=== PATIENT | male | born 1965 ===

== ENCOUNTER 2024-10-11 08:34 | Emergency (ER) | payer OTHER, SELFPAY ==
[2024-10-11] VITALS (7 sets, daily range): BP systolic 133–172; BP diastolic 66–84; PULSE 51–60; RESP 14–16; TEMP 36–36.6; O2SAT 97–99; BMI 49.4
--- NOTE | 2024-10-11 | ECG_ITS ---
Test Reason : cp Blood Pressure : */* mmHG Vent. Rate : 53 BPM Atrial Rate : 53 BPM P-R Int : 164 ms QRS Dur : 74 ms QT Int : 408 ms P-R-T Axes : 57 20 11 degrees QTcB Int : 382 ms Sinus bradycardia Otherwise normal ECG No previous ECGs available Referred By: Generic ED Physician Electronically Signed By: JORDI SCHULZ
--- NOTE | ~2024-10-11 | XR_ITS ---
EXAMINATION: XR CHEST CLINICAL INFORMATION: lightheaded/dizzy COMPARISON: None available. TECHNIQUE: Frontal view of the chest was obtained. FINDINGS: The cardiac, hilar, and mediastinal contours are normal. The lungs are clear bilaterally. No pneumothorax or effusion. No focal osseous or soft tissue abnormality. XR/XR chest 1V IMPRESSION: No active pulmonary disease. Electronically signed by: Yvon Mora MD 10/11/2024 10:33 AM EDT
--- NOTE | ~2024-10-11 | CT_ITS ---
EXAMINATION: CT HEAD WITHOUT IV CONTRAST HISTORY: RIGGS, blurred vision, L arm/face numbness. TECHNIQUE: Unenhanced helical CT of the head was performed per standard departmental protocol. Coronal and sagittal reformats of the head were also evaluated. One or more of the following techniques was used for dose reduction: Automated exposure control, adjustment of the mA and/or kV according to patient size, use of iterative reconstruction technique. DLP: 880 mGy-cm COMPARISON: There are no prior studies available for comparison. FINDINGS: BRAIN: The brain parenchyma is unremarkable. There is normal grimaldo/white differentiation. The ventricular system is normal in size and configuration. There is no mass effect or midline shift. No intra- or extra-axial fluid collections are identified. SINUSES: There is mucosal thickening in the bilateral ethmoid and right sphenoid sinuses. The mastoid air cells and middle ear cavities are well pneumatized. ORBITS: The visualized orbits are unremarkable. BONES/SOFT TISSUES: The extracranial soft tissues are unremarkable. The calvarium is intact. No suspicious lytic or sclerotic lesions. CT/CT head/brain wo IV con IMPRESSION: Unremarkable unenhanced head CT. Electronically signed by: Javier Payan MD 10/11/2024 10:39 AM EDT
--- NOTE | 2024-10-11 09:05 | PC.NURSE ---
Patient A&O x 3. Patient presents to ED c/o left chest pain which radiates to jaw and left arm. Pain rated 8/10. Patient c/o dizziness and lightheadedness denies falls. Patient hypertensive 153/76 all other VSS. Pain started two days ago, no precipitating factors. Patient on provider contracting consultant sinus gay. Call terry in reach. Plan of care on going.
[2024-10-11 09:33] LABS: MANUAL DIFF FLAG NO
[2024-10-11 09:35] LABS: Basophils Percent Auto 0.6 % (0-2); Eosinophils Absolute Auto 0.2 X10*3/uL (0.0-0.4); Eosinophils Percent Auto 2.6 % (0-4); Hematocrit 41.2 % (42.0-52.0); Imm Gran Abs Auto 0.01 X10*3/uL (0.00-0.03); Imm Gran Pct Auto 0.2 % (0.0-0.4); Lymphocytes Absolute Auto 3.5 X10*3/uL (1.2-4.9); Lymphocytes Percent Auto 54.1 % (20-40); Mean Corpuscular Hemoglobin 31.9 pg (27.0-33.0); Mean Corpuscular Volume 93.8 fL (80.0-98.0); Mean Platelet Volume 9.4 fL (9.4-12.4); Monocytes Absolute Auto 0.7 X10*3/uL (0.1-1.2); Monocytes Percent Auto 11.4 % (2-11); Neutrophils Percent Auto 31.1 % (45-73); Platelet Count 250 X10*3/uL (160-400); Red Blood Count 4.39 X10*6/uL (4.60-5.80); Red Cell Distribution Width 12.4 % (11.0-16.0); White Blood Count 6.5 X10*3/uL (4.8-10.8)
--- NOTE | 2024-10-11 09:41 | ED.CHESTPAIN ---
HPI - Chest Pain General Chief Complaint: Chest Pain Stated Complaint: quest of stroke Time Seen by Provider: 10/11/24 09:14 Source: patient, RN notes reviewed and old records reviewed Mode of arrival: ambulatory History of Present Illness ED Provider: Jennifer Lewis PA-C HPI narrative: 59-year-old male with a past medical history of asthma presenting to the ED complaining of headache, blurry vision, left-sided facial / jaw numbness, LUE numbness and left upper chest pain since waking this morning. Also reports associated slurred / slowed speech. Admits vision and speech has improved at present however remaining symptoms are still present. Admits to similar episode yesterday around noon, symptoms resolved and then recurred again today. Denies SOB, vision, nausea/ vomiting, SOB, abdominal pain. Denies anticoagulation use Related Data Home Medications ?Medication ?Instructions ?Recorded ?Confirmed colchicine 0.6 mg tablet 0.6 mg PO DAILY PRN gout 10/11/24 10/11/24 Allergies Allergy/AdvReac Type Severity Reaction Status Date / Time SHELL FISH Allergy Mild DIFFICULTY Uncoded 10/11/24 08:41 BREATHING Review of Systems Review of Systems: Yes all other systems are reviewed and are negative Constitutional: Constitutional: Reports as per HPI Neurologic: Denies Abnormal speech present [facility] Past Medical History Attestation statement: The following information was validated with the patient. Source: old records reviewed Social History Social History Smoked in Last 30 Days: No Use of substances other than those prescribed or required for medical reasons: No Advance Directives: No Advance Directives Information Provided: Yes Physical Exam Vital Signs: Vital Signs: Last Vital Signs Temp 96.8 F 10/11/24 11:57 Pulse 51 10/11/24 11:57 Resp 14 10/11/24 11:57 BP 156/84 H 10/11/24 11:57 Pulse Ox 99 10/11/24 11:57 O2 Del Method Room Air 10/11/24 11:57 BMI result Body Mass Index 49.4 Const: General: cooperative, healthy appearing and no acute distress Orientation/consciousness: patient oriented x3 Limitations: no limitations HEENT: Head: Yes normal to inspection and Yes atraumatic Ears: hearing grossly normal bilaterally General nose exam: Normal external nose present Face and sinus: Yes normal facial exam Eyes: General: appearance normal, both eyes and all related structures Pupils: Equal, round and reactive pupils present EOM: EOMs intact bilaterally Neck: Neck: Yes normal visual inspection and Yes no meningeal signs Resp: Effort & Inspection: normal respiratory effort and no respiratory distress Auscultation: clear to auscultation bilaterally, no crackles, no rales, no rhonchi and no wheezes Cardio: Rate: regular rate Heart sounds: S1 normal heart sound present and S2 normal heart sound present GI: Inspection: Yes normal to inspection Palpation (GI): Soft to palpation, nontender, no guarding and not rigid : General: Yes no CVA tenderness Back/Spine/Pelvis: Back: no CVA tenderness Skin: Rashes: no rashes Wounds: no wounds Neuro: General: patient oriented x3, tone normal, moves all extremities, no meningeal signs, no focal motor deficits and CN's II-XI intact bilaterally Cranial nerves: Yes CN's II-XII intact bilaterally and Yes Equal, round and reactive pupils present Cognition (Neuro): normal cognition Speech: No Abnormal speech present Gait exam (Neuro): Normal gait present Motor exam (neuro): 5/5 motor strength present throughout, Pronator motor function not present and no tremor noted Coordination: [id number] test normal Romberg Test: Negative Extrem: General: Yes normal to inspection NIH Stroke Scale Internal: Initial- Upon Arrival Level of Consciousness: Alert Level of Consciousness Questions: Answers both questions correctly Level of Consciousness Commands: Performs both tasks correctly Best Gaze: Normal Visual: No visual loss Facial Palsy: Normal Motor Arm (Right): No drift Motor Arm (Left): No drift Motor Leg (Right): No drift Motor Leg (Left): No drift Limb Ataxia: Absent Sensory: Normal Best Language: No aphasia Dysarthia: Normal Extinction and Inattention: No abnormality Score: 0 Course Course Course Narrative: - Labs reassuring - head CT and chest x-ray unremarkable > plan to admit for TIA. Patient accepted by hospitalist 1250 >1330--- patient now wants to sign out AMA. States he called his PCP and is scheduled for outpatient MRI. Discussed with patient at length risks of leaving, TIA/ CVA precautions/risks and importance of timely intervention. document control coordinator Slime also spoke with patient. He is A&O x3, competent to make his own decisions and will still sign out AMA Medical Decision Making Medical Decision Making MDM Narrative: 59-year-old male with a past medical history of asthma presenting to the ED complaining of headache, blurry vision, left-sided facial / jaw numbness, LUE numbness and left upper chest pain since waking this morning. Also reports associated slurred / slowed speech. On exam vital signs stable, NAD, nontoxic appearing, no focal deficits appreciated, NIHSS = 0. Concern for subacute CVA vs TIA vs atypical ACS vs complicated migraine. lower suspicion for SAH, dissection, PE, CVT Plan: EKG, labs, UA, CXR, head CT, anticipated admission Please refer to course for remaining clinical decision making, interpretation of labs/imaging results, and discussions with consultants and/or family members. Differential Diagnosis Differential Diagnoses: The differential diagnosis associated with the presentation includes As above Admission/Observation Consideration of admission/observation: Escalation of care including admission/observation considered Consult Healthcare Provider Management of the patient was discussed with: Hospitalist Lab Data [facility] Lab Attestation statement: I reviewed the patient's lab results. 10/11/24 09:30 10/11/24 09:30 Labs: Lab Results 10/11/24 10/11/24 Range/Units 09:30 10:02 WBC 6.5 (4.8-10.8) X10*3/uL RBC 4.39 L (4.60-5.80) X10*6/uL Hgb 14.0 (14.0-18.0) g/dl Hct 41.2 L (42.0-52.0) % MCV 93.8 (80.0-98.0) fL MCH 31.9 (27.0-33.0) pg MCHC 34.0 (31.0-36.0) g/dl RDW 12.4 (11.0-16.0) % Plt Count 250 (160-400) X10*3/uL MPV 9.4 (9.4-12.4) fL Immature Gran % (Auto) 0.2 (0.0-0.4) % Neut % (Auto) 31.1 L (45-73) % Lymph % (Auto) 54.1 H (20-40) % Cross % (Auto) 11.4 H (2-11) % Eos % (Auto) 2.6 (0-4) % Baso % (Auto) 0.6 (0-2) % Lymph # (Auto) 3.5 (1.2-4.9) X10*3/uL Cross # (Auto) 0.7 (0.1-1.2) X10*3/uL Eos # (Auto) 0.2 (0.0-0.4) X10*3/uL Baso # (Auto) 0.0 (0.0-0.2) X10*3/uL Abs Immat Gran (auto) 0.01 (0.00-0.03) X10*3/uL Absolute Neuts (auto) 2.0 (2.0-8.3) x10*3/uL Absolute Nucleated RBC 0.000 (0.0-0.012) X10*3/uL Nucleated RBC % (auto) 0.0 (0.0-0.2) /100WBC PT 11.4 (10.9-12.4) SEC INR 1.0 (0.9-1.1) Sodium 142 (135-145) mmol/L Potassium 3.9 (3.3-5.1) mmol/L Chloride 109 H (96-108) mmol/L Carbon Dioxide 27 (22-29) mmol/L Anion Gap 10 L (12-20) BUN 12 (9-16) mg/dL Creatinine 0.92 (0.5-1.4) mg/dL Estim Creat Clear Calc 121.4 Estimated GFR > 60 Random Glucose 106 (60-115) mg/dL Calcium 9.0 (8.4-10.2) mg/dL Magnesium 2.1 (1.6-2.6) mg/dL Total Bilirubin 0.6 (0.0-1.0) mg/dL AST 22 (5-37) U/L ALT 30 (0-40) U/L Alkaline Phosphatase 48 (39-117) U/L Troponin I High Sens < 2.7 (<3.5-35.0) ng/L Total Protein 6.9 (6.5-8.0) g/dL Albumin 4.2 (3.5-5.0) g/dL Influenza Type A (PCR) NEGATIVE (Negative) Influenza Type B (PCR) NEGATIVE (Negative) RSV RNA Qual (PCR) NEGATIVE (Negative) SARS-CoV-2 RNA (RT-PCR) NEGATIVE (Negative) Independent Interpretation I performed an independent interpretation of an: EKG, Plain X-Ray and CT Scan Radiology Impression Discussion of test interpretation with radiology: I have reviewed the radiologist's reading. Independent Historian Clinical information obtained from an independent historian. History obtained from or confirmed by: Other External Record Review External record reviewed: Inpatient record, Office record, Outpatient record, Prior outpatient labs, Prior outpatient radiology, Primary care record and Outside ED record Tests considered The following testing was considered but not selected: As above Prescription Management I considered prescription management with: Antibiotic Chronic Conditions Patient?s care impacted by: Other Social Determinants Patient?s care significantly limited by Social Determinants of Health including: Other Social Determinant of Health Discharge Plan Discharge Clinical Impression: Brain TIA Patient Disposition: Admitted As Inpatient
[2024-10-11 09:52] LABS: Alanine Aminotransferase 30 U/L (0-40); Albumin Level 4.2 g/dL (3.5-5.0); Alkaline Phosphatase 48 U/L (39-117); Anion Gap 10 (12-20); Aspartate Amino Transferase 22 U/L (5-37); Bilirubin Total 0.6 mg/dL (0.0-1.0); Blood Urea Nitrogen 12 mg/dL (9-16); Carbon Dioxide 27 mmol/L (22-29); Chloride 109 mmol/L (96-108); Creatinine Clr Calc Pharmacy 121.4; Estimated Glomerular Filt Rate > 60; Glucose Random 106 mg/dL (60-115); Magnesium 2.1 mg/dL (1.6-2.6); Potassium 3.9 mmol/L (3.3-5.1); Sodium 142 mmol/L (135-145); Total Protein 6.9 g/dL (6.5-8.0)
[2024-10-11 10:02] LABS: Troponin-I High Sensitivity < 2.7 ng/L (<3.5-35.0)
--- NOTE | 2024-10-11 10:06 | PC.NURSE ---
SARS collected, results pending. Patient c/o of numbness in left arm and hand, reports symptoms are improving at this time. Patient currently in CT, results pending.
[2024-10-11 10:12] LABS: Prothrombin Time 11.4 SEC (10.9-12.4)
[2024-10-11 10:44] LABS: Influenza A PCR NEGATIVE (Negative); Influenza B PCR NEGATIVE (Negative); Resp Syncy Virus RNA Qual PCR NEGATIVE (Negative); SARS COV2 PCR INHOUSE NEGATIVE (Negative)
--- OUTSIDE RECORDS SUMMARY | 2024-10-11 11:15 | XMS_ITS | Clinical Summary ---
Author Organization [employer] em Address [address] [place] [address] Care Team Providers Care Credit Control Manager Name Role Phone Radha Roy MD Primary Care Provider [phone] Allergies Active Allergy Reactions Criticality Noted Date Comments Colchicine Analogues Other (See Comments) Low 05/15/2019 Dizziness, lightheadedness Shellfish Containing Products Swelling High 02/22/2014 Medications albuterol 90 mcg/actuation inhaler Inhale 2 puffs into the lungs every 4 (four) hours as needed for wheezing 1 Inhaler 02/10/2018 Active amLODIPine (NORVASC) 5 MG tablet Take 1 tablet (5 mg total) by mouth daily 30 tablet 09/19/2020 Active ibuprofen (MOTRIN) 800 MG tablet Take 1 tablet (800 mg total) by mouth every 8 (eight) hours as needed for pain 21 tablet 09/19/2020 Active HYDROcodone-yoni taminophen (NORCO) 5-325 mg per tablet Take 1 tablet by mouth every 6 (six) hours as needed for pain 10 tablet 09/19/2020 Active Arnuity Ellipta 200 mcg/actuation DsDv powder for inhalation 09/19/2020 Active fluticasone propionate (FLONASE) 50 mcg/actuation nasal spray 09/19/2020 Active loratadine (CLARITIN) 10 mg tablet 09/19/2020 Active Active Problems Problem Noted Date Diagnosed Date Left sided numbness 10/24/2020 Numbness on left side 10/24/2020 BMI 45.0-49.9, adult 05/22/2020 Numbness and tingling in both hands 10/18/2019 Low back pain, non-specific 10/18/2019 Spondylosis of lumbar spine with myelopathy 12/2019 Numbness and tingling of both lower extremities 10/18/2019 Chest pain 08/24/2015 HLD (hyperlipidemia) 08/24/2015 Elevated CK 08/24/2015 Complaint of paresthesia Resolved Problems Problem Noted Date Diagnosed Date Resolved Date Lateral meniscus, posterior horn derangement, left 12/10/2018 12/10/2018 Patella, chondromalacia, left 12/10/2018 12/10/2018 Complex tear of medial menis cus of left knee as current injury, sequela 12/09/2018 12/10/2018 Osteoarthritis of left knee 12/09/2018 12/10/2018 Family History Medical History Relation Name Comments No Known Medical Problems Father No Known Medical Problems Mother Relation Name Status Comments Father Mother Alive Social History Tobacco Use Types Packs/Day Years Used Date Smoking Tobacco: Never Smokeless Tobacco: Never Alcohol Use Standard Drinks/Week Comments No 0 (1 standard drink = 0.6 oz pur e alcohol) Sex and Gender Information Value Date Recorded Sex Assigned at Not on file Legal Sex Male 1:36 PM EDT Gender Identity Not on file Sexual Orientation Not on file Last Filed Vital Signs Vital Sign Reading Time Taken Comments Blood Pressure 155/76 10/24/2020 7:30 AM EDT Pulse 60 10/24/2020 7:30 AM EDT Temperature 36.6 ??C (97.9 ??F) 10/24/2020 5:35 AM ED T Respiratory Rate 17 10/24/2020 7:30 AM EDT Oxygen Saturation 95% 10/24/2020 7:30 AM EDT Inhaled Oxygen Concentration - - Weight 129.3 kg (285 lb) 10/24/2020 6:25 AM EDT Height 170.2 cm (5' 7 ) 10/24/2020 6:25 AM EDT Body Mass Index 44.64 10/24/2020 6:25 AM EDT Plan of Treatment Health Maintenance Due Date Last Done Comments CT Colonography 1967 Colonoscopy 1967 Colorectal Screening 1967 FIT-DNA 1967 FIT 1967 FOBT 1967 HIV SCREENING 1967 HIV Screening Every 1 Year 1967 HIV Screening Once 1967 Hepatitis C Screening 1967 Sigmoidoscopy 1967 COVID-19 Vaccine (1 of 4) 1979 DTAP/TDAP/TD (1 - Tdap) 1986 HEPATITIS B VACCINES (1 of 3 - 19+ 3-dose series) 1986 Shingrix (1 of 2) 2017 Influenza vaccine (Season Ended) 2024 Meningococcal B Aged Out No longer el igible based on patient's age to complete this topic Pneumococcal Vaccine: 0 to 64 Years Aged Out No longer eligible based on patient's age to complete this topic Insurance [employer] /MEDICAID WEB OPERATIONS MANAGER [employer] /MEDICAID WEB OPERATIONS MANAGER Advance Directives For more information, please contact: [phone] * Full Code (Latest Code Status on File) Date Activated Date Inactivated Comments 12/10/2018 12:20 PM 12/10/2018 8:14 PM Question Answer Comments Status: Code Discussion Completed * Full Code Date Activated Date Inactivated Comments 08/24/2015 8:10 PM 08/25/2015 4:33 PM Care Teams Credit Control Manager Relationship Specialty Start Date End Date Radha Roy MD [address] [place] [address] PCP - General Internal Medicine 11/21/17
--- NOTE | 2024-10-11 12:42 | PHA.MEDREC ---
Addendum entered by Tyson Lopez [facility] 10/11/24 12:49: MED REC CHECKED BY [facility] Original Note: Pharmacy Consult ? Medication Reconciliation Pharmacy has completed the medication reconciliation. Patient states he doesn't take any medications except Colchicine 0.6 prn, last filled 09/30/24 for 90 days. Patient states he does not take Ventolin HFA inhaler, Allopurinol 300 mg daily, last filed 09/09/24 for 90 days, Epi pen, last filled 09/14/24, Ketoconazole shampoo, last filled 09/14/24 for 30 days, Linzess 145 mg daily, last filled 09/17/24 for 30 days, and Tamsulosin 0.4 mg at bedtime, last filled 09/27/24 for 90 days.
--- NOTE | 2024-10-11 13:02 | P.HPHOSP_ITS ---
[facility] Social History Smoked in Last 30 Days: No Use of substances other than those prescribed or required for medical reasons: No Advance Directives: No Advance Directives Information Provided: Yes Meds Allergies Allergy/AdvReac Type Severity Reaction Status Date / Time SHELL FISH Allergy Mild DIFFICULTY Uncoded 10/11/24 08:41 BREATHING Active Medications: Current Medications Acetaminophen (Acetaminophen 325 Mg Tablet) 650 mg PO Q6H PRN PRN Reason: Pain, Mild 1-3,fever,headache Calcium Carbonate (Calcium Carbonate 750 Mg Tab.Chew) 750 mg PO Q4H PRN PRN Reason: Heartburn Enoxaparin Sodium (Enoxaparin Sodium 40 Mg/0.4 Ml Syringe) 40 mg SUBCUT Q24H VAL Magnesium Hydroxide (Milk Of Magnesia 30 Ml Oral.Susp) 30 ml PO DAILY PRN PRN Reason: Constipation Melatonin (Melatonin 3 Mg Tablet) 6 mg PO BEDTIME PRN PRN Reason: Insomnia Sodium Chloride (0.9 % Sodium Chloride Flush 3 Ml Syringe) 3 ml IVFLUSH QSHIFT VAL Home Medications ?Medication ?Instructions ?Recorded ?Confirmed ?Last Taken ?Type colchicine 0.6 mg tablet 0.6 mg PO DAILY PRN gout 10/11/24 10/11/24 Unknown History Physical Exam 2 Vital Signs and Narrative: Vital Signs: Last Vital Signs Temp 96.8 F 10/11/24 11:57 Pulse 51 10/11/24 11:57 Resp 14 10/11/24 11:57 BP 156/84 H 10/11/24 11:57 Pulse Ox 99 10/11/24 11:57 O2 Del Method Room Air 10/11/24 11:57 BMI result Body Mass Index 49.4 Results Labs 10/11/24 09:30 10/11/24 09:30 Labs: Laboratory Results - last 24 hr 10/11/24 10/11/24 09:30 10:02 MCV 93.8 MCH 31.9 MCHC 34.0 RDW 12.4 Plt Count 250 MPV 9.4 Immature Gran % (Auto) 0.2 Neut % (Auto) 31.1 L Lymph % (Auto) 54.1 H [place] % (Auto) 11.4 H Eos % (Auto) 2.6 Baso % (Auto) 0.6 Lymph # (Auto) 3.5 [place] # (Auto) 0.7 Eos # (Auto) 0.2 Baso # (Auto) 0.0 Abs Immat Gran (auto) 0.01 Absolute Neuts (auto) 2.0 Absolute Nucleated RBC 0.000 Nucleated RBC % (auto) 0.0 PT 11.4 INR 1.0 Anion Gap 10 L Estim Creat Clear Calc 121.4 Estimated GFR > 60 Random Glucose 106 Calcium 9.0 Magnesium 2.1 Total Bilirubin 0.6 AST 22 ALT 30 Alkaline Phosphatase 48 Troponin I High Sens < 2.7 Total Protein 6.9 Albumin 4.2 Influenza Type A (PCR) NEGATIVE Influenza Type B (PCR) NEGATIVE RSV RNA Qual (PCR) NEGATIVE SARS-CoV-2 RNA (RT-PCR) NEGATIVE Imaging Radiologist's Impressions: Impressions Chest X-Ray 10/11/24 09:36 IMPRESSION: No active pulmonary disease. Electronically signed by: Yvon Mora MD 10/11/2024 10:[address] 10/11/24 10:04 IMPRESSION: Unremarkable unenhanced head CT. Electronically signed by: Javier Payan MD 10/11/2024 10:39 AM EDT RP Quality VTE VTE Risk Level:: Medical - moderate - high VTE Device Contraindication: Treatment Not Indicated VTE Drug Contraindication: N/A - Med Ordered
--- NOTE | 2024-10-11 13:27 | MHC.EDTECH ---
Patient said he did not want to stay overnight, nurse aware
--- NOTE | 2024-10-11 13:31 | PC.NURSE ---
Patient requesting to leave AMA at this time. Dr. Dillon made aware.
--- NOTE | 2024-10-11 14:08 | MHC.STROKE ---
Met with patient to discuss stroke education. Pt reports that he does not want to stay in the hospital and that he will be leaving AMA. Pt is awake, alert and oriented x 4, speaking in full clear sentences. Pt is ambulatory, gait steady. Stroke/TIA booklet provided and stroke education reviewed. Expressed importance of calling 911 if symptoms return/worsen. Pt agreeable to plan. He reports that he will be seeing a specialist and getting an MRI as an outpatient. Symptoms up to and including discussed. Pt states that he understands. Jennifer OWENS discussed with patient further. Will continue to assist as needed.
--- NOTE | 2024-10-11 14:43 | PM.EVENT ---
Event Note Date of Service: 10/11/24 Event Note: Discharge diagnosis: suspected TIA, left UE weakness. I was notified about admitting the patient by ED provider Jennifer Lewis for possibe TIA. I placed observation order. Contacted by ED nurse that the patient wants to leave AMA and did not want to stay. He did not want to wait for me to see him. Spoke with Jennifer Lweis who advised him to stay but he refused to. signed and left AMA. Time Spent With Patient Time: Total time managing care of this patient today ____ minutes.
--- NOTE | 2024-10-11 14:49 | PC.NURSE ---
Patient leaving AMA at this time.
== END 2024-10-11 14:53 | disposition left against medical advice (07) ==
LOC: HO.ED 10:18 → HO.EDOVER 12:30
PROVIDERS: Physician Assistant; Emergency Provider Emergency Medicine Emergency Medical Services; PCP Student in an Organized Health Care Education/Training Program; Visit Provider Student in an Organized Health Care Education/Training Program
DX: R51.9 Headache, unspecified (principal); H53.8 Other visual disturbances; J45.909 Unspecified asthma, uncomplicated; R20.0 Anesthesia of skin; R47.81 Slurred speech; R07.9 Chest pain, unspecified; Z53.29 Procedure and treatment not carried out because of patient's decision for other reasons; Z03.818 Encounter for observation for suspected exposure to other biological agents ruled out
CPT/HCPCS: 0241U; 36415; 70450; 71045; 80053; 83735; 84484; 85025; 85610; 93005; 99222; 99285; Q9957

== ENCOUNTER → 2024-10-11 08:41 | Outpatient (BNV) | payer OTHER, SELFPAY | PROVIDERS: Admitting Provider Student in an Organized Health Care Education/Training Program; Emergency Provider Emergency Medicine Emergency Medical Services; PCP Student in an Organized Health Care Education/Training Program; Visit Provider Internal Medicine | DX: R00.1 Bradycardia, unspecified (principal) | CPT/HCPCS: 93010 ==

== ENCOUNTER → 2024-10-11 09:36 | Outpatient (BNV) | payer OTHER, SELFPAY | PROVIDERS: Emergency Provider Emergency Medicine Emergency Medical Services; PCP Student in an Organized Health Care Education/Training Program; Visit Provider Radiology Diagnostic Radiology | DX: R20.2 Paresthesia of skin (principal); R42 Dizziness and giddiness | CPT/HCPCS: 70450; 71045 ==